=== PATIENT | male | born 1985 | race Caucasian/White ===

== ENCOUNTER 2018-05-10 17:00 | Emergency (ER) | payer SELFPAY ==
[~2018-05-10] VITALS: Ht 170.2 cm; Wt 82.0 kg
[2018-05-10] MEDS ORDERED: ONDANSETRON HCL 4MG/2ML VIAL IV STA (17:29)
[2018-05-10] MEDS ORDERED: SODIUM CHLORIDE 0.9% 1,000 ML IV ONE (17:29)
[2018-05-10] MEDS ORDERED: LORAZEPAM 2MG/ML CPJ IV STA (17:29)
[2018-05-10 18:00] LABS: BASOPHILS % 0.7 % (0.0-2.0); EOSINOPHILS % 2.3 % (0.0-5.0); HEMOGLOBIN. 16.7 g/dL (14.0-18.0); LYMPHOCYTES % 30.7 % (20.0-50.0); MEAN CORPUSCULAR HEMOGLOBIN 31.8 pg (28.0-32.0); MEAN CORPUSCULAR VOLUME 91.6 fL (80.0-94.0); MEAN PLATELET VOLUME 8.9 fl (7.4-10.4); MONOCYTES % 8.3 % (2.0-8.0); PLATELET 268 x1000/uL (130-400); RED BLOOD CELL COUNT 5.24 mill/uL (4.7-6.1); RED CELL DISTRIBUTION WIDTH 13.3 % (11.6-14.6)
[2018-05-10 18:07] LABS: CHLORIDE 106 mEq/L (98-107)
[2018-05-10 18:09] LABS: PARTIAL THROMBOPLASTIN TIME 24.5 sec (23.4-31.0); PROTHROMBIN TIME 10.9 sec (9.4-11.6)
[2018-05-10 18:11] LABS: ETHANOL BLOOD < 10 mg/dL
[2018-05-10 18:16] LABS: CREATINE KINASE 109 IU/L (39-308)
[2018-05-10 19:19] LABS: CLARITY URINE CLEAR (CLEAR); COLOR URINE YELLOW (YELLOW); KETONES URINE 3+ (NEGATIVE); LEUKOCYTE ESTERASE URINE NEGATIVE (NEGATIVE); NITRITE URINE NEGATIVE (NEGATIVE); OCCULT BLOOD URINE NEGATIVE (NEGATIVE); PH URINE 8.5 (4.5-8.0); PROTEIN URINE TRACE (NEGATIVE); SPECIFIC GRAVITY URINE 1.029 (1.005-1.030); UROBILINOGEN URINE 0.2 E.U./dL (0.2-1.0)
[2018-05-10 19:29] LABS: *AMPHETAMINES SCREEN URINE PRESUMTIVE POSITIVE (NEGATIVE); *BARBITURATES SCREEN URINE NEGATIVE (NEGATIVE); *BENZODIAZEPINES SCREEN URINE NEGATIVE (NEGATIVE)
[2018-05-10 19:30] LABS: *COCAINE SCREEN URINE NEGATIVE (NEGATIVE); CANNABINOID URINE SCREEN NEGATIVE (NEGATIVE); METHADONE URINE SCREEN NEGATIVE (NEGATIVE); OPIATES URINE SCREEN NEGATIVE (NEGATIVE); PHENCYCLIDINE URINE SCREEN NEGATIVE (NEGATIVE)
[2018-05-10 20:30] VITALS: BP 144/82
== END 2018-05-10 20:54 | disposition home or self-care (01) ==
LOC: ER 17:23
DX: R00.2 Palpitations (principal); R07.9 Chest pain, unspecified; F45.8 Other somatoform disorders; T43.621A Poisoning by amphetamines, accidental (unintentional), initial encounter; Y92.9 Unspecified place or not applicable
CPT/HCPCS: 36415; 71045; 80053; 80305; 80307; 80329; 81003; 82550; 82962; 83690; 83880; 84443; 84484; 85025; 85610; 85730; 93005; 96361; 96374; 96375; 99285; G0482; J2060; J2405; J7030; Z7610

== ENCOUNTER 2019-04-28 13:21 | Emergency (ER) | payer MEDICAID ==
[~2019-04-28] VITALS: Ht 167.6 cm; Wt 80.0 kg
[2019-04-28] MEDS ORDERED: LIDOCAINE HCL/PF 1% 10 MG/ML 5ML VIAL IJ ONE (15:45)
[2019-04-28] MEDS ORDERED: BACITRACIN ZINC OINT UDPKT TOP ONE (15:45)
[2019-04-28 17:37] VITALS: BP 124/76
== END 2019-04-28 17:38 | disposition home or self-care (01) ==
LOC: ER 13:21
DX: S61.011A Laceration without foreign body of right thumb without damage to nail, initial encounter (principal); Z98.890 Other specified postprocedural states; Z88.0 Allergy status to penicillin; W45.8XXA Other foreign body or object entering through skin, initial encounter; Y93.89 Activity, other specified; Y92.89 Other specified places as the place of occurrence of the external cause; Y99.8 Other external cause status
CPT/HCPCS: 12002; 73140; 99283; J3490; Z7610

== ENCOUNTER 2019-04-30 15:12 | Emergency (ER) | payer MEDICAID ==
[~2019-04-30] VITALS: Ht 167.6 cm; Wt 82.0 kg
[2019-04-30 17:14] VITALS: BP 124/79
== END 2019-04-30 17:14 | disposition home or self-care (01) ==
LOC: ER 15:12
DX: S61.011D Laceration without foreign body of right thumb without damage to nail, subsequent encounter (principal); F17.200 Nicotine dependence, unspecified, uncomplicated; Z98.890 Other specified postprocedural states; Z88.0 Allergy status to penicillin; X58.XXXD Exposure to other specified factors, subsequent encounter
CPT/HCPCS: 99281

== ENCOUNTER 2019-11-29 09:08 | Emergency (ER) | payer MEDICAID ==
[~2019-11-29] VITALS: Ht 167.6 cm; Wt 80.6 kg
[2019-11-29 11:05] VITALS: BP 122/87
== END 2019-11-29 11:06 | disposition home or self-care (01) ==
LOC: ER 10:39
DX: B35.6 Tinea cruris (principal); Z88.0 Allergy status to penicillin
CPT/HCPCS: 99282

== ENCOUNTER 2025-05-13 09:52 | Emergency (ER) | payer MEDICAID ==
[~2025-05-13] VITALS: Ht 172.7 cm; Wt 91.0 kg
[2025-05-13 10:03] VITALS: TEMP 36.8; O2SAT 98
[2025-05-13] MEDS: KETOROLAC 30MG/ML VIAL IM ONE (10:28)
[2025-05-13] MEDS ORDERED: IBUP-2029 MT (11:16)
[2025-05-13] MEDS ORDERED: METH-653 MT (11:16)
[2025-05-13] MEDS ORDERED: LIDO700A30 TP (11:16)
[2025-05-13 11:35] VITALS: BP 120/75; PULSE 70; RESP 16; O2SAT 100
== END 2025-05-13 11:37 | disposition home or self-care (01) ==
LOC: ER 09:52
DX: S33.5XXA Sprain of ligaments of lumbar spine, initial encounter (principal); Z88.0 Allergy status to penicillin; Z98.890 Other specified postprocedural states; W19.XXXA Unspecified fall, initial encounter; Y93.89 Activity, other specified; Y92.89 Other specified places as the place of occurrence of the external cause; Y99.8 Other external cause status
CPT/HCPCS: 99283; 72100; 96372; J1885